=== PATIENT | female | born 1965 | race Caucasian/White ===

== ENCOUNTER 2018-11-02 15:55 | Emergency (ER) | payer OTHER ==
[2018-11-02] MEDS ORDERED: NA CHLORIDE 0.9% 1,000 ML ONE (16:17)
[2018-11-02] MEDS ORDERED: ONDANSETRON 4 MG/2 ML VIAL ONE (16:17)
--- NOTE | 2018-11-02 16:31 | EKG ---
Test Date: 2018-11-02 Test Time: 16:17:48 Enterprise Systems Manager: DOE MEASUREMENT RESULTS: Intervals: Rate: 62 FL: 156 QRSD: 94 QT: 474 QTc: 481 Bronson: P: 78 FL: 156 QRS: 82 T: 70 INTERPRETIVE STATEMENTS: Normal sinus rhythm Voltage criteria for left ventricular hypertrophy Nonspecific ST abnormality Prolonged QT Abnormal ECG No previous ECG available for comparison Electronically Signed On 11-02-18 16:30:18 DRYERMAN/WOMAN by Jacobo Wheeler
[2018-11-02] MEDS ORDERED: DIAZEPAM 10 MG/2 ML INJ SYRINGE ONE (16:36)
[2018-11-02 16:43] LABS: Absolute Monocytes 0.6 K/uL (0.1-1.3); Absolute Neutrophil 6.1 K/uL (1.8-8.0); Basophils % 0.6 % (0-1.3); Eosinophils % 0.4 % (0-4.4); Hematocrit 34.2 % (36.0-45.0); Lymphocytes % 13.2 % (15.3-44.8); MPV 7.6 fL (7.6-11.3); RBC Red Blood Cell Count 3.91 M/uL (3.86-4.86)
[2018-11-02 16:56] LABS: Protime INR 0.99
[2018-11-02] MEDS ORDERED: PROMETHAZINE 25 MG/ML VIAL ONE ×2 (16:56→17:47)
[2018-11-02 17:05] LABS: ALT/SGPT 33 U/L (12-78); AST/SGOT 21 U/L (15-37); Albumin 3.9 g/dL (3.4-5.0); Alkaline Phosphatase 80 U/L (45-117); BUN Blood Urea Nitrogen 21 mg/dL (7-18); Bicarbonate 26 mmol/L (21-32); Bilirubin Direct < 0.1 mg/dL (0-0.2); Bilirubin Total 0.4 mg/dL (0.2-1.0); Glucose Level 131 mg/dL (74-106); Magnesium 2.2 mg/dL (1.8-2.4); NT PRO-BNP 60 pg/mL (<125); Potassium 3.4 mmol/L (3.5-5.1); Protein, Total 8.1 g/dL (6.4-8.2); Sodium Level 136 mmol/L (136-145); Troponin (Emerg Dept Use Only) < 0.02 ng/mL (0.0-0.045)
--- NOTE | 2018-11-02 17:08 | RAD REPORT ---
EXAM DESCRIPTION: CT - Head Brain Wo Cont - 11/02/2018 4:56 pm CLINICAL HISTORY: Severe dizziness, nausea, vomiting COMPARISON: None. TECHNIQUE: Axial 5 mm thick images of the head were obtained without IV contrast. All CT scans are performed using dose optimization technique as appropriate and may include automated exposure control or mA/KV adjustment according to patient size. FINDINGS: No intracranial hemorrhage, mass, edema or shift of mid-line structures. No acute infarcti on changes seen. No abnormal extra-axial fluid collections. Ventricles are normal. Mastoid cells are clear. Minimal mucosal thickening in the right maxillary sinus. No air-fluid level. No acute bony findings. IMPRESSION: Negative non-contrast CT head examination for acute or significant finding.
--- NOTE | 2018-11-02 17:27 | RAD REPORT ---
EXAM DESCRIPTION: RAD - Chest Single View - 11/02/2018 5:06 pm CLINICAL HISTORY: Dizziness, shortness of breath, weakness COMPARISON: None. TECHNIQUE: AP portable chest image was obtained 1709 hours . FINDINGS: Lungs are clear. Heart and vasculature are normal. No measurable pleural effusion and no p neumothorax. No acute bony abnormality seen. No acute aortic findings suspected. IMPRESSION: No acute cardiopulmonary process.
[2018-11-02] MEDS ORDERED: MECLIZINE HCL 12.5 MG TAB ONE (17:55)
[2018-11-02] MEDS ORDERED: DEXAMETHASONE 10 MG/ML VIAL ONE (18:05)
[2018-11-02] MEDS ORDERED: NA CHLORIDE 0.9% 50 ML IV ONE (18:05)
--- NOTE | 2018-11-02 19:49 | ER ---
Nurse's Notes [facility] Name: Ernesto Robertson Age: 53 yrs Sex: Female : 1965 Arrival Date: 11/02/2018 Time: 16:04 Bed 30 Private MD: Diagnosis: Otitis media, unspecified, right ear;Benign paroxysmal vertigo, right ear Presentation: 11/02 16:22 Presenting complaint: EMS states: patient has severe dizziness, nausea, vomiting since mg2 1230 this afternoon. denies pain. Transition of care: patient was not received from another setting of care. Onset of symptoms was November 02, 2018 at 12:30. Risk Assessment: Do you want to hurt yourself or someone else? Patient reports no desire to harm self or others. Initial Sepsis Screen: Does the patient meet any 2 criteria? No. Patient's initial sepsis screen is negative. Does the patient have a suspected source of infection? No. Patient's initial sepsis screen is negative. Care prior to arrival: None. 16:22 Method Of Arrival: EMS: [facility] mg2 16:22 Acuity: CELIA 3 mg2 Triage Assessment: 16:56 General: Appears uncomfortable, Behavior is calm, cooperative. Pain: Denies pain. 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 mg2 Historical: - Allergies: 16:55 Sulfa (Sulfonamide Antibiotics); mg2 - Home Meds: 16:55 Synthroid Oral [Active]; Prozac Oral [Active]; mg2 - PMHx: 16:55 Hypothyroidism; Anxiety; mg2 - PSHx: 16:55 Appendectomy; mg2 - Immunization history:: Flu vaccine is up to date. - Social history:: Smoking status: Patient/guardian denies using tobacco, Patient uses alcohol, occasionally. Patient/guardian denies using street drugs, IV drugs. - Ebola Screening: : No symptoms or risks identified at this time. Screenin:56 Abuse screen: Denies threats or abuse. Denies injuries from another. Nutritional mg2 screening: No deficits noted. Tuberculosis screening: No symptoms or risk factors identified. Fall Risk IV access (20 points). Assessment: 17:01 General: Appears in no apparent distress. uncomfortable, Behavior is calm, cooperative. mg2 Pain: Denies pain. Neuro: Level of Consciousness is awake, alert, obeys commands, Oriented to person, place, time, situation. Neuro: Reports dizziness. Cardiovascular: Capillary refill < 3 seconds Patient's skin is warm and dry. Respiratory: Airway is patent Respiratory effort is even, unlabored, Respiratory pattern is regular, symmetrical. GI: Pt is actively vomiting undigested food. : No signs and/or symptoms were reported regarding the genitourinary system. EENT: Reports ringing in right ear. Derm: Skin is intact, is healthy with good turgor, Skin is pink, warm \T\ dry. normal. Musculoskeletal: No signs and/or symptoms reported regarding the musculoskeletal system. 19:17 Reassessment: Patient appears in no apparent distress at this time. Patient and/or mg2 family updated on plan of care and expected duration. Pain level reassessed. Patient is alert, oriented x 3, equal unlabored respirations, skin warm/dry/pink. 20:19 Reassessment: Patient appears in no apparent distress at this time. Patient and/or mg2 family updated on plan of care and expected duration. Pain level reassessed. Patient is alert, oriented x 3, equal unlabored respirations, skin warm/dry/pink. patient improved. she was able to move to the restroom with assistance. Vital Signs: 16:52 BP 146 / 75; Pulse 62; Resp 18; Temp 97.6; Pulse Ox 100% on R/A; Weight 62.6 kg; Height mg2 5 ft. 6 in. (167.64 cm); Pain 0/10; 18:00 BP 135 / 80; Pulse 62; Resp 18; Pulse Ox 100% on R/A; Pain 0/10; mg2 19:17 BP 122 / 69; Pulse 63; Resp 18; Pulse Ox 100% on R/A; Pain 0/10; mg2 20:15 BP 125 / 78; Pulse 62; Resp 18; Pulse Ox 100% on R/A; Pain 0/10; mg2 16:52 Body Mass Index 22.27 (62.60 kg, 167.64 cm) mg2 ED Course: 16:04 Patient arrived in ED. em1 16:04 Ramy Mendoza NP is PHCP. pm1 16:04 Trav Weathers MD is Attending Physician. pm1 16:20 Rio Bobo, BUD is Primary Nurse. mg2 16:24 Triage completed. mg2 16:24 EKG done, by technology adoption manager. reviewed by Ramy Mendoza NP. sm3 16:[address] sj 16:56 Arm band placed on. mg2 16:57 CT Head Brain wo Cont In Process Unspecified. EDMS 16:57 No provider procedures requiring assistance completed. Inserted saline lock: 20 gauge mg2 in left antecubital area, using aseptic technique. Blood collected. 16:57 Patient has correct armband on for positive identification. mg2 17:05 XRAY Chest (1 view) In Process Unspecified. EDMS 20:19 IV discontinued, intact, bleeding controlled, No redness/swelling at site. Pressure mg2 dressing applied. Administered Medications: 16:20 Drug: NS 0.9% 1000 ml Route: IV; Rate: 1000 ml; Site: left antecubital; mg2 19:10 Follow up: IV Status: Completed infusion mg2 16:21 Drug: Zofran 4 mg Route: IVP; Site: left antecubital; mg2 19:11 Follow up: Response: No adverse reaction; Marked relief of symptoms mg2 16:35 Drug: Valium 5 mg Route: IVP; Site: left antecubital; mg2 17:30 Follow up: Response: No adverse reaction; Marked relief of symptoms mg2 16:51 Drug: Phenergan 12.5 mg Route: IVP; Site: left antecubital; mg2 19:10 Follow up: Response: No adverse reaction; Marked relief of symptoms mg2 17:57 Drug: Phenergan 12.5 mg Route: IVP; Site: left antecubital; mg2 19:09 Follow up: Response: No adverse reaction; Marked relief of symptoms mg2 17:57 Drug: Decadron - Dexamethasone 10 mg Route: IVP; Site: left antecubital; mg2 19:09 Follow up: Response: No adverse reaction; Marked relief of symptoms mg2 18:31 Drug: Meclizine 50 mg Route: PO; mg2 19:10 Follow up: Response: No adverse reaction; Marked relief of symptoms mg2 19:52 Drug: Rocephin - (cefTRIAXone) 1 grams Route: IVPB; Infused Over: 30 mins; Site: left mg2 antecubital; 19:52 Follow up: Response: No adverse reaction; Medication administered at discharge.; IV mg2 Status: Completed infusion Outcome: 19:49 Discharge ordered by MD. pm1 20:19 Discharged to home via wheelchair, with family. mg2 20:19 Condition: stable 20:19 Discharge instructions given to patient, family, Instructed on discharge instructions, follow up and referral plans. medication usage, Demonstrated understanding of instructions, follow-up care, medications, Prescriptions given X 4. 20:22 Patient left the ED. mg2 Signatures: Dispatcher [employer] Dian Muhammad Eric em1 Ramy Mendoza NP UNDER SHERIFF pm1 Rio Bobo RN RN mg2 Adelina Braun 3
--- NOTE | 2018-11-02 19:49 | EDPHYS ---
Physician Documentation [facility] Name: Ernesto Robertson Age: 53 yrs Sex: Female : 1965 Arrival Date: 11/02/2018 Time: 16:04 Bed 30 Private MD: ED Physician Trav Weathers HPI: 11/02 17:00 This 53 yrs old Female presents to ER via EMS with complaints of Dizziness. pm1 17:00 The patient presents with sense of spinning, vertigo. Onset: The symptoms/episode pm1 began/occurred at 12:30. Context: occurred at work, just prior to the episode the patient experienced right ear pain and tinnitus. Modifying factors: The symptoms are alleviated by nothing, the symptoms are aggravated by movement of head, changing position. Associated signs and symptoms: Pertinent positives: nausea, vomiting, Pertinent negatives: abdominal pain, chest pain, headache, numbness, palpitations, tingling. Severity of symptoms: Pain is currently a 0 / 10. Patient's baseline: Neuro: alert and fully oriented, Motor: no deficits, Ambulation: walks without assistance. The patient has experienced a previous episode, many years ago. The patient has not recently seen a physician. Patient with symptoms of cough, cold and congestion. Patient with right ear pain and tinnitus, then patient with sensation of room spinning. 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 mg2 Historical: - Allergies: 16:55 Sulfa (Sulfonamide Antibiotics); mg2 - Home Meds: 16:55 Synthroid Oral [Active]; Prozac Oral [Active]; mg2 - PMHx: 16:55 Hypothyroidism; Anxiety; mg2 - PSHx: 16:55 Appendectomy; mg2 - Immunization history:: Flu vaccine is up to date. - Social history:: Smoking status: Patient/guardian denies using tobacco, Patient uses alcohol, occasionally. Patient/guardian denies using street drugs, IV drugs. - Ebola Screening: : No symptoms or risks identified at this time. ROS: 17:00 Constitutional: Negative for fever, chills, and weight loss, Eyes: Negative for injury, pm1 pain, redness, and discharge, Neck: Negative for injury, pain, and swelling. 17:00 Cardiovascular: Negative for chest pain, palpitations, and edema, Respiratory: Negative for shortness of breath, cough, wheezing, and pleuritic chest pain, Back: Negative for injury and pain, : Negative for injury, bleeding, discharge, and swelling, MS/Extremity: Negative for injury and deformity, Skin: Negative for injury, rash, and discoloration. 17:00 ENT: Positive for ear pain, tinnitus, Negative for sore throat. 17:00 Abdomen/GI: Positive for nausea and vomiting, Negative for abdominal pain, diarrhea, constipation. 17:00 Neuro: Positive for vertigo, Negative for headache, numbness, tingling, weakness. Exam: 17:00 Constitutional: This is a well developed, well nourished patient who is awake, alert, pm1 and in no acute distress. Head/Face: Normocephalic, atraumatic. Eyes: Pupils equal round and reactive to light, extra-ocular motions intact. Lids and lashes normal. Conjunctiva and sclera are non-icteric and not injected. Cornea within normal limits. Periorbital areas with no swelling, redness, or edema. Neck: Trachea midline, no thyromegaly or masses palpated, and no cervical lymphadenopathy. Supple, full range of motion without nuchal rigidity, or vertebral point tenderness. No Meningismus. 17:00 Chest/axilla: Normal chest wall appearance and motion. Nontender with no deformity. No lesions are appreciated. Cardiovascular: Regular rate and rhythm with a normal S1 and S2. No gallops, murmurs, or rubs. Normal PMI, no JVD. No pulse deficits. Respiratory: Lungs have equal breath sounds bilaterally, clear to auscultation and percussion. No rales, rhonchi or wheezes noted. No increased work of breathing, no retractions or nasal flaring. Abdomen/GI: Soft, non-tender, with normal bowel sounds. No distension or tympany. No guarding or rebound. No evidence of tenderness throughout. Back: No spinal tenderness. No costovertebral tenderness. Full range of motion. Skin: Warm, dry with normal turgor. Normal color with no rashes, no lesions, and no evidence of cellulitis. MS/ Extremity: Pulses equal, no cyanosis. Neurovascular intact. Full, normal range of motion. 17:00 ENT: External ear(s): are unremarkable, TM's: bulging, on the right, erythema, on the right, Examination of the other ear shows no obvious abnormality, Nose: is normal, Mouth: is normal, (-) tongue elevation (-) trismus Posterior pharynx: is normal, airway is patent, no peritonsilar mass, no pooling of secretions. 17:00 Neuro: Orientation: is normal, Motor: is normal, moves all fours, Sensation: is normal, no obvious gross deficits, vestibular nystagmus present. Movement of head causes sensation of room spinning. Vital Signs: 16:52 BP 146 / 75; Pulse 62; Resp 18; Temp 97.6; Pulse Ox 100% on R/A; Weight 62.6 kg; Height mg2 5 ft. 6 in. (167.64 cm); Pain 0/10; 18:00 BP 135 / 80; Pulse 62; Resp 18; Pulse Ox 100% on R/A; Pain 0/10; mg2 19:17 BP 122 / 69; Pulse 63; Resp 18; Pulse Ox 100% on R/A; Pain 0/10; mg2 20:15 BP 125 / 78; Pulse 62; Resp 18; Pulse Ox 100% on R/A; Pain 0/10; mg2 16:52 Body Mass Index 22.27 (62.60 kg, 167.64 cm) mg2 MDM: 16:06 Patient medically screened. pm1 19:46 Data reviewed: vital signs. Data interpreted: Pulse oximetry: on room air is 100 %. pm1 Interpretation: normal. Counseling: I had a detailed discussion with the patient and/or guardian regarding: the historical points, exam findings, and any diagnostic results supporting the discharge/admit diagnosis, lab results, radiology results, the need for outpatient follow up, to return to the emergency department if symptoms worsen or persist or if there are any questions or concerns that arise at home. 11/02 16:09 Order name: Basic Metabolic Panel; Complete Time: 17:17 pm1 11/02 16:09 Order name: CBC with Diff; Complete Time: 16:59 pm1 11/02 16:09 Order name: LFT's; Complete Time: 17:17 pm1 11/02 16:09 Order name: Magnesium; Complete Time: 17:17 pm1 11/02 16:09 Order name: NT PRO-BNP; Complete Time: 17:17 pm11/02 16:09 Order name: PT-INR; Complete Time: 17:17 pm11/02 16:09 Order name: Troponin (emerg Dept Use Only); Complete Time: 17:17 pm11/02 16:09 Order name: XRAY Chest (1 view); Complete Time: 17:31 pm11/02 16:09 Order name: CT Head Brain wo Cont; Complete Time: 17:17 pm1 11/02 16:09 Order name: EKG; Complete Time: 16:10 pm11/02 16:09 Order name: Cardiac monitoring; Complete Time: 16:22 pm11/02 16:09 Order name: EKG - Nurse/Tech; Complete Time: 16:51 pm11/02 16:09 Order name: IV Saline Lock; Complete Time: 16:22 pm11/02 16:09 Order name: Labs collected and sent; Complete Time: 16:22 pm11/02 16:09 Order name: O2 Per Protocol; Complete Time: 16:22 pm11/02 16:09 Order name: O2 Sat Monitoring; Complete Time: 16:22 pm1 Administered Medications: 16:20 Drug: NS 0.9% 1000 ml Route: IV; Rate: 1000 ml; Site: left antecubital; mg2 19:10 Follow up: IV Status: Completed infusion mg2 16:21 Drug: Zofran 4 mg Route: IVP; Site: left antecubital; mg2 19:11 Follow up: Response: No adverse reaction; Marked relief of symptoms mg2 16:35 Drug: Valium 5 mg Route: IVP; Site: left antecubital; mg2 17:30 Follow up: Response: No adverse reaction; Marked relief of symptoms mg2 16:51 Drug: Phenergan 12.5 mg Route: IVP; Site: left antecubital; mg2 19:10 Follow up: Response: No adverse reaction; Marked relief of symptoms mg2 17:57 Drug: Phenergan 12.5 mg Route: IVP; Site: left antecubital; mg2 19:09 Follow up: Response: No adverse reaction; Marked relief of symptoms mg2 17:57 Drug: Decadron - Dexamethasone 10 mg Route: IVP; Site: left antecubital; mg2 19:09 Follow up: Response: No adverse reaction; Marked relief of symptoms mg2 18:31 Drug: Meclizine 50 mg Route: PO; mg2 19:10 Follow up: Response: No adverse reaction; Marked relief of symptoms mg2 19:52 Drug: Rocephin - (cefTRIAXone) 1 grams Route: IVPB; Infused Over: 30 mins; Site: left mg2 antecubital; 19:52 Follow up: Response: No adverse reaction; Medication administered at discharge.; IV mg2 Status: Completed infusion Disposition: 11/03 07:10 Co-signature as Attending Physician, Trav Waethers MD I agree with the assessment and jojo plan of care. Disposition: 11/02/18 19:49 Discharged to Home. Impression: Benign paroxysmal vertigo, right ear, Otitis media, unspecified, right ear. - Condition is Stable. - Discharge Instructions: Benign Positional Vertigo, Otitis Media, Adult. - Prescriptions for Augmentin 875- 125 mg Oral Tablet - take 1 tablet by ORAL route every 12 hours for 10 days; 20 tablet. Meclizine 25 mg Oral Tablet - take 1 tablet by ORAL route every 8 hours As needed; 30 tablet. Valium 5 mg Oral Tablet - take 1 tablet by ORAL route every 8 hours As needed; 20 tablet. Zofran 4 mg Oral Tablet - take 1 tablet by ORAL route every 8 hours As needed; 20 tablet. - Medication Reconciliation Form, Thank You Letter, Antibiotic Education, Prescription Opioid Use form. - Follow up: Emergency Department; When: As needed; Reason: Worsening of condition. Follow up: Private Physician; When: 2 - 3 days; Reason: Recheck today's complaints, Continuance of care, Re-evaluation by your physician. - Problem is new. - Symptoms have improved. Signatures: Dispatcher [employer] EDTrav Hinton MD MD cha Marinas, Patrick, GAMBLING COUNSELLOR GAMBLING COUNSELLOR pm1 Rio Bobo RN RN mg2 Corrections: (The following items were deleted from the chart) 11/02 19:49 19:49 11/02/2018 19:49 Discharged to Home. Impression: Otitis media, unspecified, right pm1 ear; Benign paroxysmal vertigo, right ear. Condition is Stable. Forms are Medication Reconciliation Form, Thank You Letter, Antibiotic Education, Prescription Opioid Use. Follow up: Emergency Department; When: As needed; Reason: Worsening of condition. Follow up: Private Physician; When: 2 - 3 days; Reason: Recheck today's complaints, Continuance of care, Re-evaluation by your physician. Problem is new. Symptoms have improved. pm1 20:22 19:49 11/02/2018 19:49 Discharged to Home. Impression: Benign paroxysmal vertigo, right mg2 earOtitis media, unspecified, right ear. Condition is Stable. Forms are Medication Reconciliation Form, Thank You Letter, Antibiotic Education, Prescription Opioid Use. Follow up: Emergency Department; When: As needed; Reason: Worsening of condition. Follow up: Private Physician; When: 2 - 3 days; Reason: Recheck today's complaints, Continuance of care, Re-evaluation by your physician. Problem is new. Symptoms have improved. pm1
[2018-11-02] MEDS ORDERED: CEFTRIAXONE/SWI 1gm 1 GM/10 ML SYR ONE (19:51)
== END 2018-11-02 20:22 | disposition home or self-care (01) ==
LOC: ER 15:55
DX: H81.11 Benign paroxysmal vertigo, right ear (principal); H66.91 Otitis media, unspecified, right ear; E03.9 Hypothyroidism, unspecified; F41.9 Anxiety disorder, unspecified; Z88.2 Allergy status to sulfonamides
CPT/HCPCS: 36415; 70450; 71045; 80048; 80076; 83735; 83880; 84484; 85025; 85610; 93005; 96361; 96374; 96375; 99285; J0696; J1100; J2405; J2550; J3360; J7030